=== PATIENT | male | born 1950 | race Caucasian/White ===

== ENCOUNTER → 2016-04-29 | Outpatient (CLI) | payer BC ==
[2016-04-29 11:14] LABS: ALT 42 U/L (21-72); AST 27 U/L (17-59); Alkaline Phosphatase 85 U/L (38-126); Anion Gap 9 mmol/L; Blood Urea Nitrogen 26 mg/dL (9-20); Calcium 9.6 mg/dL (8.4-10.2); Carbon Dioxide 28 mmol/L (22-30); Chloride 107 mmol/L (98-107); Cholesterol 199 mg/dL (<200); Glucose 106 mg/dL (74-99); HDL Cholesterol 88 mg/dL (40-60); Non-African American GFR(MDRD) >60 (>60 ml/min/1.73 sqM); Potassium 4.6 mmol/L (3.5-5.1); Sodium 144 mmol/L (137-145); Total Bilirubin 0.6 mg/dL (0.2-1.3); Total Protein 7.3 g/dL (6.3-8.2); Triglycerides 90 mg/dL (<150)
== END | disposition home or self-care (01) ==
LOC: LABWHC1 09:56
PROVIDERS: ATTEND Internal Medicine Endocrinology, Diabetes & Metabolism
DX: E78.5 Hyperlipidemia, unspecified (principal); I10 Essential (primary) hypertension; E03.9 Hypothyroidism, unspecified
CPT/HCPCS: 36415; 80053; 80061; 84443

== ENCOUNTER → 2016-10-30 | Outpatient (CLI) | payer MEDICARE | END | disposition home or self-care (01) | LOC: LABWHC1 12:34 | PROVIDERS: ATTEND Internal Medicine Endocrinology, Diabetes & Metabolism | DX: E03.9 Hypothyroidism, unspecified (principal) | CPT/HCPCS: 36415; 84443 ==

== ENCOUNTER → 2017-09-23 | Outpatient (CLI) | payer BC, MEDICARE ==
[2017-09-23 12:54] LABS: ALT 36 U/L (21-72); AST 28 U/L (17-59); Albumin 4.2 g/dL (3.5-5.0); Alkaline Phosphatase 80 U/L (38-126); Anion Gap 10 mmol/L; Blood Urea Nitrogen 18 mg/dL (9-20); Calcium 9.7 mg/dL (8.4-10.2); Carbon Dioxide 27 mmol/L (22-30); Chloride 106 mmol/L (98-107); Cholesterol 216 mg/dL (<200); Glucose 97 mg/dL (74-99); HDL Cholesterol 89 mg/dL (40-60); LDL Cholesterol,Calculated 94 mg/dL (0-99); Potassium 4.5 mmol/L (3.5-5.1); Sodium 143 mmol/L (137-145); Total Bilirubin 0.7 mg/dL (0.2-1.3); Total Protein 7.4 g/dL (6.3-8.2); Triglycerides 165 mg/dL (<150)
== END | disposition home or self-care (01) ==
LOC: LABWHC1 12:09
PROVIDERS: ATTEND Internal Medicine Endocrinology, Diabetes & Metabolism
DX: E78.2 Mixed hyperlipidemia (principal); E03.8 Other specified hypothyroidism
CPT/HCPCS: 36415; 80053; 80061; 84443

== ENCOUNTER → 2018-05-08 | Outpatient (CLI) | payer BC, MEDICARE ==
[2018-05-08 19:13] LABS: LDL Cholesterol,Calculated 99.2 mg/dL (0.0-131.0); VLDL Calculation 16.8 mg/dL (5.00-40.00)
== END ==
LOC: LABWHC1 11:22
PROVIDERS: ATTEND Internal Medicine Endocrinology, Diabetes & Metabolism
DX: I10 Essential (primary) hypertension (principal); E78.5 Hyperlipidemia, unspecified; E03.8 Other specified hypothyroidism
CPT/HCPCS: 36415; 80061; 84443

== ENCOUNTER 2018-07-22 08:10 | Day surgery (SDC) | payer BC, MEDICARE ==
[2018-07-17 14:09] VITALS: BMI 29.3
[~2018-07-22 08:10] MED LIST: LACTATED RINGERS 1,000 ML IV SCH
[2018-07-22 08:33] VITALS: TEMP 97.6
--- NOTE | 2018-07-22 08:40 | P.GSHP ---
History of Present Illness H&P Date: 07/22/18 CHIEF COMPLAINT: Colon screen HISTORY OF PRESENT ILLNESS: The patient is a 67-year-old male who presents for colon screen. Lower endoscopy was offered for further evaluation and management. PAST MEDICAL HISTORY: Please see list. PAST SURGICAL HISTORY: Please see list. MEDICATIONS: Please see list. ALLERGIES: Please see list. SOCIAL HISTORY: No illicit drug use FAMILY HISTORY: No reports of Crohn disease or ulcerative colitis. REVIEW OF ORGAN SYSTEMS: CONSTITUTIONAL: No reports of fevers or chills. PHYSICAL EXAM: VITAL SIGNS: Stable GENERAL: Well-developed pleasant in no acute distress. HEENT: No scleral icterus. Extraocular movements grossly intact. Moist buccal mucosa. NECK: Supple without lymphadenopathy. CHEST: Unlabored respirations. Equal bilateral excursions. CARDIOVASCULAR: Regular rate and rhythm. Distal 2+ pulses. ABDOMEN: Soft, nontender, nondistended. MUSCULOSKELETAL: No clubbing, cyanosis, or edema. ASSESSMENT: 1. Colon screen. PLAN: 1. Recommend proceeding with a lower endoscopy Past Medical History Past Medical History: Hyperlipidemia, Hypertension, Thyroid Disorder Additional Past Medical History / Comment(s): hx of polyps, hx hemmorhoids History of Any Multi-Drug Resistant Organisms: None Reported Past Surgical History: Hernia Repair Additional Past Surgical History / Comment(s): hemmorhoidectomy, colonoscopy Past Anesthesia/Blood Transfusion Reactions: No Reported Reaction Smoking Status: Former smoker - Past Family History Brother(s) Family Medical History: Cancer Additional Family Medical History / Comment(s): renal Medications and Allergies Home Medications Medication Instructions Recorded Confirmed Type Areds 1 tab PO HS 07/17/18 07/22/18 History Atorvastatin [Lipitor] 40 mg PO HS 07/17/18 07/22/18 History Co Q 10 1 tab PO HS 07/17/18 07/22/18 History Losartan/Hydrochlorothiazide 1 tab PO QAM 07/17/18 07/22/18 History [Losartan-Hctz 100-12.5 mg Tab] RX: Levothyroxine Sodium 150 mcg PO DAILY 07/17/18 07/17/18 History amLODIPine BESYLATE 5 mg PO QAM 07/17/18 07/17/18 History Allergies Allergy/AdvReac Type Severity Reaction Status Date / Time No Known Allergies Allergy Verified 07/17/18 13:57 Surgical - Exam Vital Signs Temp Pulse Resp BP Pulse Ox 97.6 F 58 L 16 144/87 9 L 07/22/18 08:31 07/22/18 08:31 07/22/18 08:31 07/22/18 08:31 07/22/18 08:31
[2018-07-22] MEDS ORDERED: LIDOCAINE 1% 20 ML VIAL (10MG/ML) FOR IV START INTRADERMA ONE (08:43)
[2018-07-22] MEDS ORDERED: PROPOFOL 10 MG/ML 20 ML VIAL IV ONE (08:55)
--- NOTE | 2018-07-22 09:32 | P.PCN ---
Date of Procedure: 07/22/18 Description of Procedure: PREOPERATIVE DIAGNOSIS: Personal history of colon polyps. POSTOPERATIVE DIAGNOSIS: Personal history of colon polyps. Multiple tubular adenomas throughout the colon. Severe pandiverticulosis External hemorrhoids, grade 3. OPERATION: Colonoscopy to the ileocecal valve and appendiceal orifice. Colonoscopy with multiple hot snare polypectomies Colonoscopy with tumor ablation SURGEON: Nette Briggs MD. ANESTHESIA: MAC. INDICATIONS: The patient is a 67-year-old male who presents for colonoscopy screening. Last colonoscopy 3 years ago. The prostate was within normal limits. Benefits and risks were described and informed consent was obtained. DESCRIPTION OF PROCEDURE: The patient had undergone Gatorade, MiraLAX and Dulcolax prep. He had been brought into the operating room and laid in the left lateral decubitus position. After adequate intravenous sedation, the rectum was examined with 2% lidocaine jelly. External hemorrhoids were encountered. The rectal tone was within normal limits. No lesions were palpated in the rectal vault. An Olympus colonoscope was advanced until the ileocecal valve and appendiceal orifice were clearly viewed. The prep was fair with visualization of the mucosal folds. Severe scattered diverticulosis was encountered. Multiple colonic polyps were found and treated with snare polypectomy including ablation. No evidence of focal colitis was found. Retroflexion of the scope demonstrated grade 2 internal hemorrhoids without active bleeding or inflammation. The colon was desufflated. The patient had tolerated the procedure well. Withdrawal time was over 6 minutes. FINDINGS: Aronchick preparation quality scale 3 (1-5) Internal hemorrhoids, grade 2 External hemorrhoids, grade 3. No arteriovenous malformations. Severe pandiverticulosis Highly redundant colon and sigmoid colon Removal of 7 polyps: - Snare polypectomy 8 mm tubulovillous adenoma polyp, ascending colon - Snare polypectomy 30 cm from the anal verge, 5 mm flat villous adenoma polyp, descending colon - Snare polypectomy 25 from the anal verge, 4 mm flat villous adenoma polyp, descending colon - Ablation of polyp at 20 cm from the anal verge x 4, 3 mm polyp. No focal colitis. RECOMMENDATIONS: Given severity of tubular adenomas, recommend repeat colonoscopy 2 years, 2020 Plan - Discharge Summary Discharge Rx Participant: No New Discharge Prescriptions: No Action amLODIPine BESYLATE 5 mg PO QAM Atorvastatin [Lipitor] 40 mg PO HS Losartan/Hydrochlorothiazide [Losartan-Hctz 100-12.5 mg Tab] 1 tab PO QAM Levothyroxine Sodium 150 mcg PO DAILY Co Q 10 1 tab PO HS Areds 1 tab PO HS Discharge Medication List Areds 1 tab PO HS 07/17/18 [History] Atorvastatin [Lipitor] 40 mg PO HS 07/17/18 [History] Co Q 10 1 tab PO HS 07/17/18 [History] Levothyroxine Sodium 150 mcg PO DAILY 07/17/18 [History] Losartan/Hydrochlorothiazide [Losartan-Hctz 100-12.5 mg Tab] 1 tab PO QAM 07/17/18 [History] amLODIPine BESYLATE 5 mg PO QAM 07/17/18 [History] Follow up Appointment(s)/Referral(s): Nette Briggs MD [STAFF PHYSICIAN] - As Needed Patient Instructions/Handouts: Colorectal Polyps (GEN) Activity/Diet/Wound Care/Special Instructions: Repeat colonoscopy 2 years, 2020 Discharge Disposition: HOME SELF-CARE
[2018-07-22 09:48] VITALS: RESP 18
[2018-07-22 10:00] VITALS: BP 123/77; PULSE 54
== END 2018-07-22 10:08 | disposition home or self-care (01) ==
LOC: ORWHC2ENDO 08:10
PROVIDERS: ATTEND Surgery Plastic and Reconstructive Surgery
DX: Z12.11 Encounter for screening for malignant neoplasm of colon (principal); D17.79 Benign lipomatous neoplasm of other sites; K63.5 Polyp of colon; K64.1 Second degree hemorrhoids; K64.2 Third degree hemorrhoids; K57.30 Diverticulosis of large intestine without perforation or abscess without bleeding; Q43.8 Other specified congenital malformations of intestine; I10 Essential (primary) hypertension; E78.5 Hyperlipidemia, unspecified; E07.9 Disorder of thyroid, unspecified; Z86.010 Personal history of colon polyps; Z87.891 Personal history of nicotine dependence; Z87.19 Personal history of other diseases of the digestive system; Z80.51 Family history of malignant neoplasm of kidney; Z79.890 Hormone replacement therapy; Z79.899 Other long term (current) drug therapy
CPT/HCPCS: 88305; 45385; 45388; J2704; 45380

== ENCOUNTER → 2018-07-31 | Day surgery (SDC) | payer BC, MEDICARE ==
[~2018-07-31] MED LIST changes: +LACTATED RINGERS 1,000 ML IV ONE; -LACTATED RINGERS 1,000 ML IV SCH; +LIDOCAINE 1% 20 ML VIAL (10MG/ML) FOR IV START INTRADERMA ONE; +LIDOCAINE 1% INJ 10MG/ML (20 ML MDV) ONE; +PROPOFOL 10 MG/ML 20 ML VIAL IV ONE
[2018-07-31 11:53] VITALS: TEMP 97.5
[2018-07-31 12:18] LABS: Basophils % (A) 1 %; Eosinophils # (A) 0.1 k/uL (0-0.7); Eosinophils % (A) 2 %; HCT 41.5 % (39.0-53.0); HGB 14.1 gm/dL (13.0-17.5); Lymphocytes # (A) 1.3 k/uL (1.0-4.8); Lymphocytes % (A) 35 %; MCH 32.8 pg (25.0-35.0); MCHC 33.9 g/dL (31.0-37.0); MCV 96.7 fL (80.0-100.0); Monocytes # (A) 0.3 k/uL (0-1.0); Monocytes % (A) 8 %; Neutrophils % (A) 52 %; Platelet Count 190 k/uL (150-450); RBC 4.29 m/uL (4.30-5.90); RDW 13.3 % (11.5-15.5); WBC 3.8 k/uL (3.8-10.6)
--- NOTE | 2018-07-31 12:25 | P.GSHP ---
History of Present Illness H&P Date: 07/31/18 CHIEF COMPLAINT: Upper GI bleed with rectal bleeding HISTORY OF PRESENT ILLNESS: The patient is a 67-year-old male who presents reports new dark stools and history of recent lower endoscopy 2 weeks ago. Upper endoscopy was offered for further evaluation and management. PAST MEDICAL HISTORY: Please see list. PAST SURGICAL HISTORY: Please see list. MEDICATIONS: Please see list. ALLERGIES: Please see list. SOCIAL HISTORY: No illicit drug use FAMILY HISTORY: No reports of Crohn disease or ulcerative colitis. REVIEW OF ORGAN SYSTEMS: CONSTITUTIONAL: No reports of fevers or chills. PHYSICAL EXAM: VITAL SIGNS: Stable GENERAL: Well-developed and pleasant in no acute distress. HEENT: No scleral icterus. Extraocular movements grossly intact. Moist buccal mucosa. NECK: Supple without lymphadenopathy. CHEST: Unlabored respirations. Equal bilateral excursions. CARDIOVASCULAR: Regular rate and rhythm. Distal 2+ pulses. ABDOMEN: Soft, nondistended. MUSCULOSKELETAL: No clubbing, cyanosis, or edema. ASSESSMENT: 1. Upper GI bleed PLAN: 1. Recommend proceeding with an upper endoscopy Past Medical History Past Medical History: Hyperlipidemia, Hypertension, Thyroid Disorder Additional Past Medical History / Comment(s): hx of polyps, hx hemmorhoids History of Any Multi-Drug Resistant Organisms: None Reported Past Surgical History: Hernia Repair Additional Past Surgical History / Comment(s): hemmorhoidectomy, colonoscopy Past Anesthesia/Blood Transfusion Reactions: No Reported Reaction Smoking Status: Former smoker - Past Family History Brother(s) Family Medical History: Cancer Additional Family Medical History / Comment(s): renal Medications and Allergies Home Medications Medication Instructions Recorded Confirmed Type Areds 1 tab PO HS 07/17/18 07/31/18 History Atorvastatin [Lipitor] 40 mg PO HS 07/17/18 07/31/18 History Co Q 10 1 tab PO HS 07/17/18 07/31/18 History Levothyroxine Sodium 150 mcg PO DAILY 07/17/18 07/31/18 History Losartan/Hydrochlorothiazide 1 tab PO QAM 07/17/18 07/31/18 History [Losartan-Hctz 100-12.5 mg Tab] amLODIPine BESYLATE 5 mg PO QAM 07/17/18 07/31/18 History Allergies Allergy/AdvReac Type Severity Reaction Status Date / Time No Known Allergies Allergy Verified 07/31/18 11:36 Surgical - Exam Vital Signs Temp Pulse Resp BP Pulse Ox 97.5 F L 73 16 138/84 97 07/31/18 11:51 07/31/18 11:51 07/31/18 11:51 07/31/18 11:51 07/31/18 11:51 Results - Labs 07/31/18 11:50 Abnormal Lab Results - Last 24 Hours (Table) 07/31/18 Range/Units 11:50 RBC 4.29 L (4.30-5.90) m/uL
--- NOTE | 2018-07-31 13:03 | P.PCN ---
Date of Procedure: 07/31/18 Description of Procedure: PREOPERATIVE DIAGNOSIS: Gastrointestinal hemorrhage Recent rectal bleeding with melena POSTOPERATIVE DIAGNOSIS: Acute gastric ulcer with recent bleed Gastrointestinal hemorrhage Recent rectal bleeding with melena OPERATION: Esophagogastroduodenoscopy SURGEON: Nette Briggs MD ANESTHESIA: MAC. INDICATIONS: The patient is a 67-year-old male who presents with a history of recent gastrointestinal hemorrhage. Benefits and risks of the procedure were described. Informed consent was obtained. DESCRIPTION: The patient was brought into the endoscopy suite and laid in the left lateral decubitus position. An Olympus gastroscope was passed along the posterior oropharynx down to the distal esophagus where the squamocolumnar junction was encountered at 42 cm from the incisors. The stomach was entered and no bile reflux was found. Additional findings are listed below. Biopsies with cold forceps were obtained of the antrum. The first through third portion of the duodenum was examined and unremarkable. Retroflexion of the scope confirmed Hill grade 3 lower esophageal valve. The squamocolumnar junction demonstrated LA grade B erosive esophagitis. The stomach was desufflated. The patient tolerated the procedure well. FINDINGS: Squamocolumnar junction 42 cm from the incisors. Diaphragmatic hiatus at 42 cm. Hill grade 2 lower esophageal valve. LA grade B erosive esophagitis. No active duodenitis. Acute gastric ulcer with recent bleed proximal to angularis incisura small- based, 5 mm size RECOMMENDATIONS: Omeprazole 40 mg daily for at least 2-4 weeks. Plan - Discharge Summary New Discharge Prescriptions: New Omeprazole 40 mg PO DAILY #30 capsule.dr No Action amLODIPine BESYLATE 5 mg PO QAM Atorvastatin [Lipitor] 40 mg PO HS Losartan/Hydrochlorothiazide [Losartan-Hctz 100-12.5 mg Tab] 1 tab PO QAM Levothyroxine Sodium 150 mcg PO DAILY Co Q 10 1 tab PO HS Areds 1 tab PO HS Discharge Medication List Areds 1 tab PO HS 07/17/18 [History] Atorvastatin [Lipitor] 40 mg PO HS 07/17/18 [History] Co Q 10 1 tab PO HS 07/17/18 [History] Levothyroxine Sodium 150 mcg PO DAILY 07/17/18 [History] Losartan/Hydrochlorothiazide [Losartan-Hctz 100-12.5 mg Tab] 1 tab PO QAM 07/17/18 [History] amLODIPine BESYLATE 5 mg PO QAM 07/17/18 [History] Omeprazole 40 mg PO DAILY #30 capsule. 07/31/18 [Rx] Follow up Appointment(s)/Referral(s): Nette Briggs MD [STAFF PHYSICIAN] - 08/19/18 Patient Instructions/Handouts: Peptic Ulcer (ED), Diet for Stomach Ulcers and Gastritis (ED) Discharge Disposition: HOME SELF-CARE
[2018-07-31 13:22] VITALS: RESP 15
[2018-07-31 13:34] VITALS: BP 137/90; PULSE 63
== END | disposition home or self-care (01) ==
LOC: ORWHC2ENDO 11:10
PROVIDERS: ATTEND Surgery Plastic and Reconstructive Surgery
DX: K25.0 Acute gastric ulcer with hemorrhage (principal); K22.10 Ulcer of esophagus without bleeding; K29.70 Gastritis, unspecified, without bleeding; E78.5 Hyperlipidemia, unspecified; I10 Essential (primary) hypertension; E07.9 Disorder of thyroid, unspecified; Z79.890 Hormone replacement therapy; Z79.899 Other long term (current) drug therapy; Z87.891 Personal history of nicotine dependence
CPT/HCPCS: 43239; 85025; J2001; J2704; 43235

== ENCOUNTER 2018-09-16 09:54 | Day surgery (SDC) | payer BC, MEDICARE ==
[2018-09-15 08:28] VITALS: BMI 29.3
--- NOTE | 2018-09-16 07:51 | P.GSHP ---
History of Present Illness H&P Date: 09/16/18 CHIEF COMPLAINT: GERD HISTORY OF PRESENT ILLNESS: The patient is a 67-year-old male who presents reports gastroesophageal reflux disease. Upper endoscopy was offered for further evaluation and management. PAST MEDICAL HISTORY: Please see list. PAST SURGICAL HISTORY: Please see list. MEDICATIONS: Please see list. ALLERGIES: Please see list. SOCIAL HISTORY: No illicit drug use FAMILY HISTORY: No reports of Crohn disease or ulcerative colitis. REVIEW OF ORGAN SYSTEMS: CONSTITUTIONAL: No reports of fevers or chills. GI: Denies any blood in stools or constipation. PHYSICAL EXAM: VITAL SIGNS: Stable GENERAL: Well-developed and pleasant in no acute distress. HEENT: No scleral icterus. Extraocular movements grossly intact. Moist buccal mucosa. NECK: Supple without lymphadenopathy. CHEST: Unlabored respirations. Equal bilateral excursions. CARDIOVASCULAR: Regular rate and rhythm. Distal 2+ pulses. ABDOMEN: Soft, nondistended. MUSCULOSKELETAL: No clubbing, cyanosis, or edema. ASSESSMENT: 1. Gastroesophageal reflux disease PLAN: 1. Recommend proceeding with an upper endoscopy Past Medical History Past Medical History: Hyperlipidemia, Hypertension, Thyroid Disorder Additional Past Medical History / Comment(s): hx of polyps, hx hemmorhoids, stomach ulcer History of Any Multi-Drug Resistant Organisms: None Reported Past Surgical History: Hernia Repair Additional Past Surgical History / Comment(s): hemmorhoidectomy, colonoscopy, egd Past Anesthesia/Blood Transfusion Reactions: No Reported Reaction Smoking Status: Former smoker - Past Family History Brother(s) Family Medical History: Cancer Additional Family Medical History / Comment(s): renal Medications and Allergies Home Medications Medication Instructions Recorded Confirmed Type Atorvastatin [Lipitor] 40 mg PO HS 07/17/18 09/15/18 History Co Q 10 1 tab PO 07/17/18 09/15/18 History Levothyroxine Sodium 150 mcg PO DAILY 07/17/18 09/15/18 History Losartan/Hydrochlorothiazide 1 tab PO QAM 07/17/18 09/15/18 History [Losartan-Hctz 100-12.5 mg Tab] amLODIPine BESYLATE 5 mg PO QAM 07/17/18 09/15/18 History Omeprazole 40 mg PO DAILY #30 capsule. 07/31/18 09/15/18 Rx Multivitamins, Thera [Multivitamin 1 tab PO HS 09/15/18 09/15/18 History (formulary)] Ranitidine HCl [Zantac] 150 mg PO BID 09/15/18 09/15/18 History Vit C/E/Zn/Coppr/Lutein/Zeaxan 1 each PO DAILY 09/15/18 09/15/18 History [Preservision Areds 2 Softgel] Allergies Allergy/AdvReac Type Severity Reaction Status Date / Time No Known Allergies Allergy Verified 09/15/18 08:22
[~2018-09-16 09:54] MED LIST changes: -LACTATED RINGERS 1,000 ML IV ONE; +LACTATED RINGERS 1,000 ML IV SCH; -LIDOCAINE 1% 20 ML VIAL (10MG/ML) FOR IV START INTRADERMA ONE; +LIDOCAINE 1% 20 ML VIAL (10MG/ML) FOR IV START INTRADERMA PRN; -LIDOCAINE 1% INJ 10MG/ML (20 ML MDV) ONE; -PROPOFOL 10 MG/ML 20 ML VIAL IV ONE
[2018-09-16 10:31] VITALS: TEMP 97.5
[2018-09-16] MEDS ORDERED: PROPOFOL 10 MG/ML 20 ML VIAL IV ONE (11:13)
[2018-09-16] MEDS ORDERED: LIDOCAINE 1% INJ 10MG/ML (20 ML MDV) ONE (11:13)
--- NOTE | 2018-09-16 11:39 | P.PCN ---
Date of Procedure: 09/16/18 Description of Procedure: PREOPERATIVE DIAGNOSIS: History of gastric ulcers POSTOPERATIVE DIAGNOSIS: History of gastric ulcers Superficial and chronic gastritis Gastroesophageal reflux disease OPERATION: Esophagogastroduodenoscopy with biopsies along the antrum SURGEON: Nette Briggs MD ANESTHESIA: MAC. INDICATIONS: The patient is a 67-year-old male who presents with a history of bleeding gastric ulcers over one month ago. Benefits and risks of the procedure were described. Informed consent was obtained. DESCRIPTION: The patient was brought into the endoscopy suite and laid in the left lateral decubitus position. An Olympus gastroscope was passed along the posterior oropharynx down to the distal esophagus where the squamocolumnar junction was encountered at 42 cm from the incisors. The stomach was entered and no bile reflux was found. Additional findings are listed below. Biopsies with cold forceps were obtained of the antrum. The first through third portion of the duodenum was examined and unremarkable. Retroflexion of the scope confirmed Hill grade 3 lower esophageal valve. The squamocolumnar junction demonstrated LA grade B erosive esophagitis. The stomach was desufflated. The patient tolerated the procedure well. FINDINGS: Squamocolumnar junction 42 cm from the incisors. Diaphragmatic hiatus at 42 cm. Hill grade 2 lower esophageal valve. LA grade B erosive esophagitis. No active duodenitis. Moderate chronic gastritis of the antrum was identified and cold forceps biopsy Lesion 3-mm of proximal stomach at lesser curvature with punctate bleed RECOMMENDATIONS: Omeprazole 40 mg daily Plan - Discharge Summary Discharge Rx Participant: Yes New Discharge Prescriptions: New Omeprazole 40 mg PO DAILY #90 capsule. No Action amLODIPine BESYLATE 5 mg PO QAM Atorvastatin [Lipitor] 40 mg PO HS Losartan/Hydrochlorothiazide [Losartan-Hctz 100-12.5 mg Tab] 1 tab PO QAM Levothyroxine Sodium 150 mcg PO DAILY Co Q 10 1 tab PO HS Omeprazole 40 mg PO DAILY #30 capsule. Ranitidine HCl [Zantac] 150 mg PO BID Vit C/E/Zn/Coppr/Lutein/Zeaxan [Preservision Areds 2 Softgel] 1 each PO DAILY Multivitamins, Thera [Multivitamin (formulary)] 1 tab PO HS Discharge Medication List Atorvastatin [Lipitor] 40 mg PO HS 07/17/18 [History] Co Q 10 1 tab PO HS 07/17/18 [History] Levothyroxine Sodium 150 mcg PO DAILY 07/17/18 [History] Losartan/Hydrochlorothiazide [Losartan-Hctz 100-12.5 mg Tab] 1 tab PO QAM 07/17/18 [History] amLODIPine BESYLATE 5 mg PO QAM 07/17/18 [History] Omeprazole 40 mg PO DAILY #30 capsule. 07/31/18 [Rx] Multivitamins, Thera [Multivitamin (formulary)] 1 tab PO HS 09/15/18 [History] Ranitidine HCl [Zantac] 150 mg PO BID 09/15/18 [History] Vit C/E/Zn/Coppr/Lutein/Zeaxan [Preservision Areds 2 Softgel] 1 each PO DAILY 09/15/18 [History] Omeprazole 40 mg PO DAILY #90 capsule. 09/16/18 [Rx] Follow up Appointment(s)/Referral(s): Nette Briggs MD [STAFF PHYSICIAN] - 10/06/18 Patient Instructions/Handouts: Gastritis (DC), Diet for Stomach Ulcers and Gastritis (ED) Activity/Diet/Wound Care/Special Instructions: Please use Omeprazole Discharge Disposition: HOME SELF-CARE
[2018-09-16 11:43] VITALS: RESP 18
[2018-09-16 12:05] VITALS: BP 131/93; PULSE 58
== END 2018-09-16 12:17 | disposition home or self-care (01) ==
LOC: ORWHC2ENDO 09:54
PROVIDERS: ATTEND Surgery Plastic and Reconstructive Surgery
DX: K29.30 Chronic superficial gastritis without bleeding (principal); K21.9 Gastro-esophageal reflux disease without esophagitis; I10 Essential (primary) hypertension; E78.5 Hyperlipidemia, unspecified; E07.9 Disorder of thyroid, unspecified; K22.10 Ulcer of esophagus without bleeding; Z87.891 Personal history of nicotine dependence; Z79.890 Hormone replacement therapy; Z79.899 Other long term (current) drug therapy; Z86.010 Personal history of colon polyps; Z87.19 Personal history of other diseases of the digestive system
CPT/HCPCS: 88305; 43239; J2001; J2704

== ENCOUNTER → 2018-12-24 | Outpatient (CLI) | payer BC, MEDICARE | END | disposition home or self-care (01) | LOC: LABWHC1 08:42 | PROVIDERS: ATTEND Internal Medicine Endocrinology, Diabetes & Metabolism | DX: E03.8 Other specified hypothyroidism (principal) | CPT/HCPCS: 36415; 84443 ==

== ENCOUNTER → 2019-09-01 | Day surgery (SDC) | payer BC, MEDICARE ==
[2019-08-27 14:09] VITALS: BMI 30.2
[~2019-09-01] MED LIST changes: +IV FLUID CONTINUATION 500 ML IV ONE; +LIDOCAINE 1% (10MG/ML) FOR IV START INTRADERMA ONE; -LIDOCAINE 1% 20 ML VIAL (10MG/ML) FOR IV START INTRADERMA PRN; +PROPOFOL 10 MG/ML 20 ML VIAL IV ONE
--- NOTE | 2019-09-01 08:12 | P.GSHP ---
History of Present Illness H&P Date: 09/01/19 CHIEF COMPLAINT: Colon screen HISTORY OF PRESENT ILLNESS: The patient is a 68-year-old male who presents for colon screen. Lower endoscopy was offered for further evaluation and management. PAST MEDICAL HISTORY: Please see list. PAST SURGICAL HISTORY: Please see list. MEDICATIONS: Please see list. ALLERGIES: Please see list. SOCIAL HISTORY: No illicit drug use FAMILY HISTORY: No reports of Crohn disease or ulcerative colitis. REVIEW OF ORGAN SYSTEMS: CONSTITUTIONAL: No reports of fevers or chills. PHYSICAL EXAM: VITAL SIGNS: Stable GENERAL: Well-developed pleasant in no acute distress. HEENT: No scleral icterus. Extraocular movements grossly intact. Moist buccal mucosa. NECK: Supple without lymphadenopathy. CHEST: Unlabored respirations. Equal bilateral excursions. CARDIOVASCULAR: Regular rate and rhythm. Distal 2+ pulses. ABDOMEN: Soft, nontender, nondistended. MUSCULOSKELETAL: No clubbing, cyanosis, or edema. ASSESSMENT: 1. Colon screen. PLAN: 1. Recommend proceeding with a lower endoscopy Past Medical History Past Medical History: GERD/Reflux, Hyperlipidemia, Hypertension, Thyroid Disorder Additional Past Medical History / Comment(s): hx of polyps, hx hemorrhoids, stomach ulcer History of Any Multi-Drug Resistant Organisms: None Reported Past Surgical History: Hernia Repair Additional Past Surgical History / Comment(s): hemorrhoidectomy, colonoscopy, egd Past Anesthesia/Blood Transfusion Reactions: No Reported Reaction Smoking Status: Former smoker - Past Family History Brother(s) Family Medical History: Cancer Additional Family Medical History / Comment(s): renal Medications and Allergies Home Medications Medication Instructions Recorded Confirmed Type Atorvastatin [Lipitor] 40 mg PO HS 07/17/18 08/27/19 History Co Q 10 1 tab PO HS 07/17/18 08/27/19 History Levothyroxine Sodium 150 mcg PO DAILY 07/17/18 08/27/19 History Losartan/Hydrochlorothiazide 1 tab PO QAM 07/17/18 08/27/19 History [Losartan-Hctz 100-12.5 mg Tab] amLODIPine BESYLATE 5 mg PO QAM 07/17/18 08/27/19 History Multivitamins, Thera [Multivitamin 1 tab PO HS 09/15/18 08/27/19 History (formulary)] Vit C/E/Zn/Coppr/Lutein/Zeaxan 1 each PO DAILY 09/15/18 08/27/19 History [Preservision Areds 2 Softgel] Omeprazole Magnesium [PriLOSEC OTC] 20 mg PO DAILY 08/27/19 08/27/19 History Allergies Allergy/AdvReac Type Severity Reaction Status Date / Time No Known Allergies Allergy Verified 08/27/19 13:59
[2019-09-01 08:29] VITALS: RESP 16; TEMP 97.8
--- NOTE | 2019-09-01 09:31 | P.PCN ---
Date of Procedure: 09/01/19 Description of Procedure: PREOPERATIVE DIAGNOSIS: Personal history of colon polyps. POSTOPERATIVE DIAGNOSIS: Personal history of colon polyps. Pandiverticulosis Descending colon polyp Ascending colon polyp External hemorrhoids, grade 3. OPERATION: Colonoscopy to the ileocecal valve and appendiceal orifice. Colonoscopy with cold forceps biopsy SURGEON: Nette Briggs MD. ANESTHESIA: MAC. INDICATIONS: The patient is a 68-year-old male who presents for follow-up of multiple high- risk colon adenomas one year ago. Benefits and risks were described and informed consent was obtained. DESCRIPTION OF PROCEDURE: The patient had undergone Suprep. He had been brought into the operating room and laid in the left lateral decubitus position. After adequate intravenous sedation, the rectum was examined with 2% lidocaine jelly. External hemorrhoids were encountered. The rectal tone was within normal limits. No lesions were palpated in the rectal vault. An Olympus colonoscope was advanced until the ileocecal valve and appendiceal orifice were clearly viewed. The prep was fair with visualization of the mucosal folds. Scattered diverticulosis was encountered. Colon polyps were removed using cold forceps biopsy. No evidence of focal colitis was found. Retroflexion of the scope demonstrated grade 2 internal hemorrhoids without active bleeding or inflammation. The colon was desufflated. The patient had tolerated the procedure well. Withdrawal time was over 6 minutes. FINDINGS: Aronchick preparation quality scale 3 (1-5) Internal hemorrhoids, grade 2 External hemorrhoids, grade 3, with recent inflammation, impacted sebum No arteriovenous malformations. Sigmoid diverticulosis Pandiverticulosis Removal of 2 polyps: - Cold forceps biopsy at 30 cm from the anal verge, 4 mm polyp, descending colon - Cold forceps biopsy at ascending colon, 5 mm polyp No focal colitis. RECOMMENDATIONS: Repeat colonoscopy 3 years, 2022 Plan - Discharge Summary Discharge Rx Participant: Yes New Discharge Prescriptions: Continue amLODIPine BESYLATE 5 mg PO QAM Atorvastatin [Lipitor] 40 mg PO HS Losartan/Hydrochlorothiazide [Losartan-Hctz 100-12.5 mg Tab] 1 tab PO QAM Levothyroxine Sodium 150 mcg PO DAILY Co Q 10 1 tab PO HS Vit C/E/Zn/Coppr/Lutein/Zeaxan [Preservision Areds 2 Softgel] 1 each PO DAILY Multivitamins, Thera [Multivitamin (formulary)] 1 tab PO HS Omeprazole Magnesium [PriLOSEC OTC] 20 mg PO DAILY Discharge Medication List Atorvastatin [Lipitor] 40 mg PO HS 07/17/18 [History] Co Q 10 1 tab PO HS 07/17/18 [History] Levothyroxine Sodium 150 mcg PO DAILY 07/17/18 [History] Losartan/Hydrochlorothiazide [Losartan-Hctz 100-12.5 mg Tab] 1 tab PO QAM 07/17/18 [History] amLODIPine BESYLATE 5 mg PO QAM 07/17/18 [History] Multivitamins, Thera [Multivitamin (formulary)] 1 tab PO HS 09/15/18 [History] Vit C/E/Zn/Coppr/Lutein/Zeaxan [Preservision Areds 2 Softgel] 1 each PO DAILY 09/15/18 [History] Omeprazole Magnesium [PriLOSEC OTC] 20 mg PO DAILY 08/27/19 [History] Follow up Appointment(s)/Referral(s): Nette Briggs MD [STAFF PHYSICIAN] - As Needed Patient Instructions/Handouts: Colorectal Polyps (DC), Diverticulosis Diet (GEN), Diverticulosis (DC) Activity/Diet/Wound Care/Special Instructions: Repeat colonoscopy 3 years, 2022 Discharge Disposition: HOME SELF-CARE
[2019-09-01 09:45] VITALS: BP 115/74; PULSE 58
== END | disposition home or self-care (01) ==
LOC: ORWHC2ENDO 08:12
PROVIDERS: ATTEND Surgery Plastic and Reconstructive Surgery
DX: Z12.11 Encounter for screening for malignant neoplasm of colon (principal); D12.2 Benign neoplasm of ascending colon; K63.5 Polyp of colon; K57.30 Diverticulosis of large intestine without perforation or abscess without bleeding; K64.1 Second degree hemorrhoids; K64.4 Residual hemorrhoidal skin tags; I10 Essential (primary) hypertension; K21.9 Gastro-esophageal reflux disease without esophagitis; E07.9 Disorder of thyroid, unspecified; E78.5 Hyperlipidemia, unspecified; Z86.010 Personal history of colon polyps; Z87.11 Personal history of peptic ulcer disease; Z87.19 Personal history of other diseases of the digestive system; Z87.891 Personal history of nicotine dependence; Z79.890 Hormone replacement therapy; Z79.899 Other long term (current) drug therapy; Z98.890 Other specified postprocedural states; Z80.51 Family history of malignant neoplasm of kidney
CPT/HCPCS: 88305; 45380; J2704

== ENCOUNTER → 2020-03-10 | Outpatient (CLI) | payer MEDICARE ==
--- NOTE | 2020-03-10 16:07 | MR ---
EXAMINATION TYPE: MR knee LT wo con DATE OF EXAM: 03/10/2020 COMPARISON: None HISTORY: Left knee pain TECHNIQUE: Multiplanar, multisequence imaging of the left knee is performed without IV contrast. FINDINGS: MEDIAL MENISCUS: Posterior horn medial meniscus is a short oblique signal extending towards the super ior articular surface, series 301 image 27. Small oblique tear may be present. There is increased sig nal within the substance of the posterior horn medial meniscus can be related to a type I tear. Anter ior horn medial meniscus is intact. LATERAL MENISCUS: Subtle increased signals within the anterior and posterior horns lateral meniscus l ikely related to some degenerative change. CRUCIATE LIGAMENTS: The anterior and posterior cruciate ligaments are intact and unremarkable. COLLATERAL LIGAMENTS: Increased signal is adjacent to the medial collateral ligament compatible with a sprain. Lateral collateral ligament appears intact. EXTENSOR MECHANISM: Visualized quadriceps and patellar tendons are intact. EFFUSION: No significant suprapatellar joint effusion. POPLITEAL CYST: No popliteal/zepeda cyst. TRICOMPARTMENT SPACES: Joint spaces appear preserved. CARTILAGE: Minimal narrowing of the articular cartilage may be present with some early osteoarthritic degenerative change may be present. BONE MARROW SIGNAL: No focal abnormal marrow signal is appreciated. Impressions: 1. Sprain of the medial collateral ligament. 2. Small oblique tear posterior horn medial meniscus. 3. Degenerative changes within the anterior posterior horns lateral meniscus. 4. Mild thinning of the articular cartilage.
== END | disposition home or self-care (01) ==
LOC: RADMRIMAIN 11:02
PROVIDERS: ATTEND Orthopaedic Surgery
DX: M17.12 Unilateral primary osteoarthritis, left knee (principal); S83.242A Other tear of medial meniscus, current injury, left knee, initial encounter; S83.412A Sprain of medial collateral ligament of left knee, initial encounter; M23.92 Unspecified internal derangement of left knee

== ENCOUNTER → 2020-04-25 | Outpatient (CLI) | payer MEDICARE ==
[2020-04-25 14:54] LABS: Basophils # (A) 0.04 X 10*3/uL (0.00-0.10); Eosinophils # (A) 0.11 X 10*3/uL (0.04-0.35); Eosinophils % (A) 2.6 %; HCT 45.3 % (39.6-50.0); HGB 15.2 g/dL (13.0-17.0); Lymphocytes # (A) 1.48 X 10*3/uL (0.90-5.00); Lymphocytes % (A) 35.6 %; MCH 32.1 pg (27.0-32.0); MCHC 33.6 g/dL (32.0-37.0); MCV 95.8 fL (80.0-97.0); Mean Platelet Volume 11.7 fL (9.5-12.2); Monocytes # (A) 0.58 X 10*3/uL (0.20-1.00); Monocytes % (A) 13.9 %; Neutrophils # (A) 1.94 X 10*3/uL (1.80-7.70); Neutrophils % (A) 46.7 %; Platelet Count 191 X 10*3/uL (140-440); RBC 4.73 X 10*6/uL (4.40-5.60); RDW 12.1 % (11.5-14.5); WBC 4.16 X 10*3/uL (4.50-10.00)
[2020-04-25 15:07] LABS: African American GFR (CKD) 88.6 (60.0-200.0); Albumin 4.3 g/dL (3.80-4.90); Albumin/Globulin Ratio 1.79 (1.60-3.17); Anion Gap 7.2 mmol/L (4.00-12.00); Calcium 9.4 mg/dL (8.7-10.3); Carbon Dioxide 28.8 mmol/L (21.6-31.8); Chol/HDL Ratio 2.6; Globulin 2.4 g/dL (1.6-3.3); LDL Cholesterol,Calculated 76.6 mg/dL (0.0-131.0); Non-African American GFR(CKD) 76.5 (60.0-200.0); Potassium 4.2 mmol/L (3.5-5.5); Total Bilirubin 0.8 mg/dL (0.2-1.2); Total Protein 6.7 g/dL (6.2-8.2); VLDL Calculation 22.4 mg/dL (5.00-40.00)
[2020-04-25 15:15] LABS: T4, Free (Free Thyroxine) 1.3 ng/dL (0.80-1.80)
[2020-04-25 15:16] LABS: Prostate Specific Antigen 3.6 ng/mL (0.0-4.5)
== END | disposition home or self-care (01) ==
LOC: LABWHC1 08:58
PROVIDERS: ATTEND Family Medicine
DX: E03.9 Hypothyroidism, unspecified (principal); E78.5 Hyperlipidemia, unspecified; I10 Essential (primary) hypertension
CPT/HCPCS: 36415; 80053; 80061; 84153; 84439; 84443; 84481; 85025

== ENCOUNTER → 2020-11-09 | Outpatient (CLI) | payer MEDICARE ==
[2020-11-09 11:10] LABS: Basophils # (A) 0.04 X 10*3/uL (0.00-0.10); Basophils % (A) 0.8 %; Eosinophils % (A) 2.1 %; HCT 43.4 % (39.6-50.0); HGB 14.7 g/dL (13.0-17.0); Lymphocytes # (A) 1.78 X 10*3/uL (0.90-5.00); Lymphocytes % (A) 37.6 %; MCH 33.3 pg (27.0-32.0); MCHC 33.9 g/dL (32.0-37.0); MCV 98.4 fL (80.0-97.0); Mean Platelet Volume 11.4 fL (9.5-12.2); Monocytes # (A) 0.53 X 10*3/uL (0.20-1.00); Monocytes % (A) 11.2 %; Neutrophils # (A) 2.27 X 10*3/uL (1.80-7.70); Neutrophils % (A) 47.9 %; Platelet Count 185 X 10*3/uL (140-440); RBC 4.41 X 10*6/uL (4.40-5.60); WBC 4.74 X 10*3/uL (4.50-10.00)
[2020-11-09 14:17] LABS: Albumin 4.1 g/dL (3.80-4.90); Albumin/Globulin Ratio 1.46 (1.60-3.17); Anion Gap 8.2 mmol/L (4.00-12.00); Calcium 8.9 mg/dL (8.7-10.3); Carbon Dioxide 25.8 mmol/L (21.6-31.8); Globulin 2.8 g/dL (1.6-3.3); Non-African American GFR(CKD) 75.9 (60.0-200.0); Potassium 4.2 mmol/L (3.5-5.5); Total Bilirubin 0.7 mg/dL (0.2-1.2); Total Protein 6.9 g/dL (6.2-8.2)
[2020-11-09 14:25] LABS: PSA Annual Screen 3.3 ng/mL (0.0-4.0); T4, Free (Free Thyroxine) 1.2 ng/dL (0.80-1.80)
== END | disposition home or self-care (01) ==
LOC: LABWHC1 07:11
PROVIDERS: ATTEND Family Medicine
DX: Z12.5 Encounter for screening for malignant neoplasm of prostate (principal); E03.9 Hypothyroidism, unspecified; I10 Essential (primary) hypertension
CPT/HCPCS: 84439; 84481; 80053; 84443; 85025; 36415; G0103

== ENCOUNTER → 2021-06-04 | Outpatient (CLI) | payer MEDICARE ==
--- NOTE | 2021-06-04 11:42 | FL ---
ESOPHOGRAM. HISTORY: Dysphagia Esophagram was performed per the air contrast technique. The patient swallowed barium and effervesce nt crystals without difficulty or delay. Esophageal peristalsis and motility appear to be within normal limits. There is no evidence for filling defect, mass or diverticulum. No hiatal hernia seen. Mildly increased distal esophageal folds may reflect esophagitis. Subsequently single contrast cervical esophagram was performed which fails demonstrate evidence for m ass. Single episode of aspiration noted. IMPRESSION: 1. Correlate for esophagitis. 2. Single episode of aspiration identified.
== END | disposition home or self-care (01) ==
LOC: RADUSWWP 09:44
PROVIDERS: ATTEND Surgery Plastic and Reconstructive Surgery
DX: K21.00 Gastro-esophageal reflux disease with esophagitis, without bleeding (principal)
CPT/HCPCS: 74220

== ENCOUNTER 2021-06-20 09:18 | Day surgery (SDC) | payer MEDICARE ==
[2021-06-15 13:39] VITALS: BMI 28.0
--- NOTE | 2021-06-20 08:53 | P.GSHP ---
History of Present Illness H&P Date: 06/20/21 CHIEF COMPLAINT: GERD HISTORY OF PRESENT ILLNESS: The patient is a 70-year-old male who presents reports gastroesophageal reflux disease. Upper endoscopy was offered for further evaluation and management. PAST MEDICAL HISTORY: Please see list. PAST SURGICAL HISTORY: Please see list. MEDICATIONS: Please see list. ALLERGIES: Please see list. SOCIAL HISTORY: No illicit drug use FAMILY HISTORY: No reports of Crohn disease or ulcerative colitis. REVIEW OF ORGAN SYSTEMS: CONSTITUTIONAL: No reports of fevers or chills. GI: Denies any blood in stools or constipation. PHYSICAL EXAM: VITAL SIGNS: Stable GENERAL: Well-developed and pleasant in no acute distress. HEENT: No scleral icterus. Extraocular movements grossly intact. Moist buccal mucosa. NECK: Supple without lymphadenopathy. CHEST: Unlabored respirations. Equal bilateral excursions. CARDIOVASCULAR: Regular rate and rhythm. Distal 2+ pulses. ABDOMEN: Soft, nondistended. MUSCULOSKELETAL: No clubbing, cyanosis, or edema. ASSESSMENT: 1. Gastroesophageal reflux disease PLAN: 1. Recommend proceeding with an upper endoscopy Past Medical History Past Medical History: GERD/Reflux, Hyperlipidemia, Hypertension, Thyroid Disorder Additional Past Medical History / Comment(s): hx hemorrhoids, hx stomach ulcer 2019, History of Any Multi-Drug Resistant Organisms: None Reported Past Surgical History: Hernia Repair Additional Past Surgical History / Comment(s): hemorrhoidectomy, colonoscopy, egd Past Anesthesia/Blood Transfusion Reactions: No Reported Reaction Smoking Status: Former smoker - Past Family History Brother(s) Family Medical History: Cancer Additional Family Medical History / Comment(s): renal Medications and Allergies Home Medications Medication Instructions Recorded Confirmed Type Atorvastatin [Lipitor] 40 mg PO HS 07/17/18 06/15/21 History Levothyroxine Sodium 150 mcg PO MOTUWETHFRSA 07/17/18 06/15/21 History Losartan/Hydrochlorothiazide 1 tab PO QAM 07/17/18 06/15/21 History [Losartan-Hctz 100-12.5 mg Tab] amLODIPine BESYLATE 5 mg PO QAM 07/17/18 06/15/21 History Multivitamins, Thera [Multivitamin 1 tab PO W/SUPPER 09/15/18 06/15/21 History (formulary)] Vit C/E/Zn/Coppr/Lutein/Zeaxan 1 each PO BID 09/15/18 06/15/21 History [Preservision Areds 2 Softgel] Omeprazole Magnesium [PriLOSEC OTC] 20 mg PO BID 08/27/19 06/15/21 History Ubidecarenone [Co Q-10] 100 mg PO DAILY 06/15/21 06/15/21 History Allergies Allergy/AdvReac Type Severity Reaction Status Date / Time No Known Allergies Allergy Verified 06/15/21 13:30
[2021-06-20 10:36] VITALS: TEMP 97.4
[2021-06-20] MEDS: LACTATED RINGERS 1,000 ML IV SCH ×2 (10:38→11:07)
[2021-06-20] MEDS ORDERED: PROPOFOL 10 MG/ML 20 ML VIAL IV ONE (11:10)
--- NOTE | 2021-06-20 11:28 | P.PCN ---
Date of Procedure: 06/20/21 Description of Procedure: PREOPERATIVE DIAGNOSIS: Gastroesophageal reflux disease. POSTOPERATIVE DIAGNOSIS: Gastroesophageal reflux disease with erosive esophagitis Duodenal lesion Gastritis. OPERATION: Esophagogastroduodenoscopy with biopsies along antrum and duodenum SURGEON: Nette Briggs MD ANESTHESIA: MAC. INDICATIONS: The patient is a 70-year-old male who presents with reflux disease. Benefits and risks of the procedure were described. Informed consent was obtained. DESCRIPTION: The patient was brought into the endoscopy suite and laid in the left lateral decubitus position. An Olympus gastroscope was passed along the posterior oropharynx down to the distal esophagus where the squamocolumnar junction was encountered at 45 cm from the incisors. The stomach was entered and no bile reflux was found. Additional findings are listed below. Biopsies with cold forceps were obtained of the antrum. The first through third portion of the duodenum was examined. Retroflexion of the scope confirmed Hill grade 2 lower esophageal valve. The squamocolumnar junction demonstrated LA grade B erosive esophagitis. The stomach was desufflated. The patient tolerated the procedure well. FINDINGS: Squamocolumnar junction 45 cm from the incisors. Diaphragmatic hiatus at 45 cm. Hill grade 2 lower esophageal valve. LA grade B erosive esophagitis. Duodenal polypoid lesion, less than 5 mm, at second third portion of duodenum Duodenal biopsies obtained Chronic gastritis RECOMMENDATIONS: Upper endoscopy as needed. Increase omeprazole to 40 mg daily Plan - Discharge Summary New Discharge Prescriptions: Continue amLODIPine BESYLATE 5 mg PO QAM Atorvastatin [Lipitor] 40 mg PO HS Losartan/Hydrochlorothiazide [Losartan-Hctz 100-12.5 mg Tab] 1 tab PO QAM Levothyroxine Sodium 150 mcg PO MOTUWETHFRSA Vit C/E/Zn/Coppr/Lutein/Zeaxan [Preservision Areds 2 Softgel] 1 each PO BID Multivitamins, Thera [Multivitamin (formulary)] 1 tab PO W/SUPPER Omeprazole Magnesium [PriLOSEC OTC] 20 mg PO BID Ubidecarenone [Co Q-10] 100 mg PO DAILY Discharge Medication List Atorvastatin [Lipitor] 40 mg PO HS 07/17/18 [History] Levothyroxine Sodium 150 mcg PO MOTUWETHFRSA 07/17/18 [History] Losartan/Hydrochlorothiazide [Losartan-Hctz 100-12.5 mg Tab] 1 tab PO QAM 07/17/18 [History] amLODIPine BESYLATE 5 mg PO QAM 07/17/18 [History] Multivitamins, Thera [Multivitamin (formulary)] 1 tab PO W/SUPPER 09/15/18 [History] Vit C/E/Zn/Coppr/Lutein/Zeaxan [Preservision Areds 2 Softgel] 1 each PO BID 09/15/18 [History] Omeprazole Magnesium [PriLOSEC OTC] 20 mg PO BID 08/27/19 [History] Ubidecarenone [Co Q-10] 100 mg PO DAILY 06/15/21 [History] Follow up Appointment(s)/Referral(s): Nette Briggs MD [STAFF PHYSICIAN] - 07/17/21 Patient Instructions/Handouts: Gastritis (DC), Diet for Stomach Ulcers and Gastritis (ED), GERD (Gastroesophageal Reflux Disease) (DC) Discharge Disposition: HOME SELF-CARE
[2021-06-20 11:53] VITALS: BP 123/85; PULSE 54; RESP 18
== END 2021-06-20 12:20 | disposition home or self-care (01) ==
LOC: ORWHC2ENDO 09:18
PROVIDERS: ATTEND Surgery Plastic and Reconstructive Surgery
DX: K29.50 Unspecified chronic gastritis without bleeding (principal); K31.A0 Gastric intestinal metaplasia, unspecified; K22.10 Ulcer of esophagus without bleeding; E78.5 Hyperlipidemia, unspecified; I10 Essential (primary) hypertension; E07.9 Disorder of thyroid, unspecified; Z87.11 Personal history of peptic ulcer disease; Z98.890 Other specified postprocedural states; Z87.891 Personal history of nicotine dependence; Z80.51 Family history of malignant neoplasm of kidney; Z79.890 Hormone replacement therapy; Z79.899 Other long term (current) drug therapy
CPT/HCPCS: 88305; 43239; J2704

== ENCOUNTER → 2022-01-30 | Outpatient (CLI) | payer MEDICARE ==
[2022-01-30 18:34] LABS: Basophils # (A) 0.04 X 10*3/uL (0.00-0.10); Basophils % (A) 0.7 %; Eosinophils # (A) 0.12 X 10*3/uL (0.04-0.35); Eosinophils % (A) 2.1 %; HCT 43.9 % (39.6-50.0); HGB 14.6 g/dL (13.0-17.0); Immature Grans, Automated 0.5 %; Lymphocytes % (A) 39.9 %; MCH 31.5 pg (27.0-32.0); MCHC 33.3 g/dL (32.0-37.0); MCV 94.8 fL (80.0-97.0); Mean Platelet Volume 11.3 fL (9.5-12.2); Monocytes # (A) 0.54 X 10*3/uL (0.20-1.00); Monocytes % (A) 9.4 %; NRBC Per 100 WBC 0 /100 WBCS (0.0-0.0); Neutrophils # (A) 2.73 X 10*3/uL (1.80-7.70); Neutrophils % (A) 47.4 %; Platelet Count 171 X 10*3/uL (140-440); RBC 4.63 X 10*6/uL (4.40-5.60); RDW 12.9 % (11.5-14.5); WBC 5.76 X 10*3/uL (4.50-10.00)
[2022-01-30 18:58] LABS: African American GFR (CKD) 82.4 (60.0-200.0); Albumin 4.1 g/dL (3.8-4.9); Albumin/Globulin Ratio 1.39 (1.60-3.17); Anion Gap 9.9 mmol/L (10.00-18.00); BUN/Creat Ratio 19.71 Ratio (12.00-20.00); Blood Urea Nitrogen 20.7 mg/dL (9.0-27.0); Calcium 9.7 mg/dL (8.7-10.3); Carbon Dioxide 26.7 mmol/L (20.0-27.5); Non-African American GFR(CKD) 71.1 (60.0-200.0); T4, Free (Free Thyroxine) 1.23 ng/dL (0.800-1.800); Total Bilirubin 0.4 mg/dL (0.30-1.20); Total Protein 7.1 g/dL (6.2-8.2)
== END | disposition home or self-care (01) ==
LOC: LABWHC1 13:14
PROVIDERS: ATTEND Family Medicine
DX: I10 Essential (primary) hypertension (principal); E03.9 Hypothyroidism, unspecified; E78.5 Hyperlipidemia, unspecified
CPT/HCPCS: 36415; 80053; 84439; 84443; 84481; 85025